=== PATIENT | male | born 1990 | race Hispanic/Latino ===

== ENCOUNTER 2022-09-16 05:32 | Emergency (ER) | payer OTHER ==
[~2022-09-16] VITALS: Ht 160 cm; Wt 71.7 kg
[2022-09-16 06:48] VITALS: BP 150/74
[2022-09-16] MEDS ORDERED: PREDNISONE 20 MG TABLET PO ONE (07:30)
[2022-09-16] MEDS ORDERED: PREDNISONE 20 MG TABLET ONE (07:51)
== END 2022-09-16 07:49 | disposition home or self-care (01) ==
LOC: EDH 05:32
DX: R09.89 Other specified symptoms and signs involving the circulatory and respiratory systems (principal)
CPT/HCPCS: 71045